=== PATIENT | male | born 1995 | race Caucasian/White ===

== ENCOUNTER 2016-09-07 17:07 | Inpatient (IN) | payer OTHER ==
[~2016-09-07] VITALS: Ht 177.8 cm; Wt 86.6 kg
[2016-09-08] MEDS ORDERED: MOM 30ML SUSPENSION UDC PO PRN (18:30)
[2016-09-08] MEDS ORDERED: ACETAMINOPHEN TAB 650MG DOSE (2X325MG) PO PRN (18:30)
[2016-09-08] MEDS ORDERED: MAALOX 30 ML SUSP *UDC PO PRN (18:30)
[2016-09-08] MEDS ORDERED: LORazepam 1 MG TAB PO PRN (18:30)
[2016-09-08] MEDS ORDERED: ATOM25CA PO (18:32)
[2016-09-08] MEDS ORDERED: LORA0.5T PO (18:32)
[2016-09-08] MEDS ORDERED: TRAZ50TA4 PO (18:32)
[2016-09-08] MEDS ORDERED: NICOTINE 21MG/24HR 1 EA TRANSDERMAL As Ordered ONE (20:08)
--- NOTE | 2016-09-08 21:50 | EDDOCDS ---
Physician Documentation [facility] Name: Wayne Luna Age: 21 yrs Sex: Male : 1995 Arrival Date: 09/07/2016 Time: 17:07 Bed OBSERVATION Private MD: Disposition: 09/08/16 18:02 Hospitalization ordered by Marty Bravo for Inpatient Admission. Preliminary diagnosis is Major depressive disorder, recurrent. - Bed requested for M PSY. - Status is Inpatient Admission. kb5 - Condition is Stable. Historical: - Allergies: no known allergies; - Home Meds: 1. clonazepam 0.5 mg Oral tab 1 tab daily 2. lorazepam 0.5 mg Oral tab 1 tab daily 3. trazodone 50 mg Oral tab 0.5 tab 1-2/day - PMHx: Anxiety; ADHD; - PSHx: none; - Social history: Smoking status: Patient uses tobacco products, heavy tobacco smoker. Patient uses alcohol weekly. No barriers to communication noted, The patient speaks fluent Turkish. - Family history: Not pertinent. - : The pt / caregiver states he / she is not on anticoagulants. Home medication list is obtained from the patient. - Exposure Risk Screening:: None identified. Vital Signs: 09/07 17:13 BP 129 / 78 RA Sitting (auto/reg); Pulse 76; Resp 18; Temp 98.3(O); Pulse Ox 98% on jrd R/A; Weight 83.91 kg / 184.99 lbs (R); Height 5 ft. 10 in. (177.80 cm); Pain 0/10; 22:24 BP 139 / 64; Pulse 79; Resp 18; Temp 97.9(TE); Pulse Ox 98% ; Pain 0/10; mas 09/08 05:01 BP 134 / 63; Pulse 65; Resp 16; Temp 97.2(TE); Pulse Ox 97% on R/A; Pain 0/10; slm 12:00 BP 136 / 68; Pulse 64; Resp 18; Temp 98(T); Pulse Ox 99% on R/A; mk4 21:31 BP 140 / 76; Pulse 76; Resp 18; Temp 98.1; Pulse Ox 96% on R/A; Pain 0/10; slm 09/07 17:13 Body Mass Index 26.54 (83.91 kg, 177.80 cm) jrd MDM: 09/07 17:28 Consult PFS/PSA/Hot Dimpling Machine Operator ordered. br1 17:28 Consult PFS/PSA/Hot Dimpling Machine Operator: Patient's case requires discussion with on-call br1 Psychiatrist ordered. 17:28 PSA/PFS to call Nursing E Tailer, to enter patient data on [place] Safe Act if patient br1 involuntarily admitted or transferred for SI or HI ordered. 17:28 Confirm accurate psychiatric medication list and times of last dosage ordered. br1 17:28 Detain Pt Until Medically/PFS Cleared ordered. br1 17:36 Consult PFS/PSA/Socail Worker: Cleared medically for eval ordered. br1 17:43 REGULAR DIET PLASTIC DOVE+DIET ordered. EDMS 18:09 [facility] Payment Agreement was scanned into [employer] and attached to record. gjb 18:09 Financial registration complete. gjb 21:16 Consult PFS/PSA/Hot Dimpling Machine Operator complete. slm 21:16 PSA/PFS to call Nursing E Tailer, to enter patient data on [place] Safe [place] if patient slm involuntarily admitted or transferred for SI or HI complete. 21:47 Consult PFS/PSA/Socail Worker: Cleared medically for eval complete. ml4 21:47 Consult PFS/PSA/Hot Dimpling Machine Operator: Patient's case requires discussion with on-call ml4 Psychiatrist complete. 09/08 04:24 REGULAR DIET PLASTIC DOVE+DIET ordered. EDMS 11:08 REGULAR DIET PLASTIC DOVE+DIET ordered. EDMS 17:17 REGULAR DIET PLASTIC DOVE+DIET ordered. EDMS 17:41 Admit to [facility]: ordered. EDMS 18:26 REGULAR DIET ordered. EDMS 19:32 [facility] Legal paperwork was scanned into [employer] and attached to record. ml4 20:03 Nicotine Patch 21 mg/24 hr 1 applic Transdermal once ordered. sls1 Administered Medications: 20:14 Drug: Nicotine 1 applic [nicotine 21 mg/24 hr daily transdermal patch (1 patches)] sl Route: Transdermal; Site: left upper arm; Signatures: Dispatcher [employer] EDMS Jessee Browning, Security Aide SecurpjEvlein Bacon, PSA PSA ml4 Db Vasquez, RURAL CARRIER ASSOCIATE RURAL CARRIER ASSOCIATE kb5 Marlon Clements MD MD br1 Leigh Cortez, RN RN sls1 Tayler Morales,BUSINESS RULES DEVELOPER BUSINESS RULES DEVELOPER slm Wm LittleRN RN mb9 Kaylie Teresa,RN RN kc3 Lenora Morfin The chart was reviewed and I authenticate all verbal orders and agree with the evaluation and treatment provided.Attachments: 09/07 18:09 [facility] Payment Agreement katie MTDD
--- NOTE | 2016-09-08 21:50 | EDDOCDS ---
Nurse's Notes [facility] Name: Wayne Luna Age: 21 yrs Sex: Male : 1995 Arrival Date: 09/07/2016 Time: 17:07 Bed OBSERVATION Private MD: Diagnosis: Major depressive disorder, recurrent Presentation: 09/07 17:13 Presenting complaint: Patient states: "I'm here because someone called an ambulance". mb9 When questioned further pt states, "I took a bunch of pills because I was in a bad way. I'm going through a divorce and I have a baby on the way.". pt reports this as a suicide attempt and states, "I just didn't want ot wake up. I know it was a stupid thing to do now". pt was transferred to [facility] from [facility]. pt reports that he took 2 of his clonazepam and the rest of his lorazepam and trazodone. Mental Health Triage Level: Level 2: The patient displays active suicidal ideations. Adult Sepsis Screening: The patient does not have new or worsening altered mentation. Patient's respiratory rate is less than 22. Systolic blood pressure is greater than 100. Patient has a qSOFA score of 0- Negative Sepsis Screen. Suicide/Homicide risk assessment- The patient admits to and/or has been reported to be having suicidal ideations. 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 Transition of care: patient was received from [facility]. 17:13 Acuity: KEIRA Level 3 mb9 17:13 Method Of Arrival: Ambulance mb9 Triage Assessment: 17:19 General: Appears in no apparent distress, Behavior is appropriate for age, cooperative. mb9 Pain: Denies pain. Pt Declines HIV testing. The patient is triaged at the bedside. See Assessment in Nurses Notes section of ED record. Respiratory: Airway is patent Respiratory effort is even, unlabored. Historical: - Allergies: no known allergies; - Home Meds: 1. clonazepam 0.5 mg Oral tab 1 tab daily 2. lorazepam 0.5 mg Oral tab 1 tab daily 3. trazodone 50 mg Oral tab 0.5 tab 1-2/day - PMHx: Anxiety; ADHD; - PSHx: none; - Social history: Smoking status: Patient uses tobacco products, heavy tobacco smoker. Patient uses alcohol weekly. No barriers to communication noted, The patient speaks fluent Portuguese. - Family history: Not pertinent. - : The pt / caregiver states he / she is not on anticoagulants. Home medication list is obtained from the patient. - Exposure Risk Screening:: None identified. Screenin:20 Screening information is obtained from the patient. Fall risk: No risks identified. slm Assistance ADL's: requires no assistance with activities of daily living. Nutritional screening: No deficits noted. Advance Directives: Currently, there is no health care proxy. There is no active DNR order. There is no living will. There is no Power of Janitorial Cleaner. Advance directive information has not previously been placed in an [facility] medical record. Further advance directive information is declined. 09/08 19:24 Abuse/DV Screen: The patient / caregiver reports he/she is: not in a situation that slm causes fear, pain or injury. home support is inadequate. Assessment: 09/07 17:46 Adult Sepsis Screening: The patient does not have new or worsening altered mentation. dsf Patient's respiratory rate is less than 22. Systolic blood pressure is greater than 100. Patient has a qSOFA score of 0- Negative Sepsis Screen. General: Appears in no apparent distress, Behavior is appropriate for age. Neurological: Level of Consciousness is awake, alert. Cardiovascular: Capillary refill < 3 seconds. Respiratory: Airway is patent Respiratory effort is even, unlabored, Respiratory pattern is regular, symmetrical. Derm: Skin is pink, warm & dry. 18:32 General: Appears in no apparent distress, comfortable, Behavior is appropriate for age, kc3 cooperative, Pt resting on stretcher with no complaints at this time. Psych security in place. Respirations even and unlabored. Will continue to monitor. . 18:59 General: Appears in no apparent distress, comfortable, Behavior is appropriate for age, ka4 cooperative, quiet. General: patient supine on stretcher. voices no complaints at this time. sitter observing. . Respiratory: Airway is patent Respiratory effort is even, unlabored, Respiratory pattern is regular, symmetrical. 19:15 General: Appears in no apparent distress, comfortable, Behavior is appropriate for age, slm cooperative. General: resting on stretcher awaiting to speak to high school social studies teacher security observing . Neurological: Level of Consciousness is awake, alert, obeys commands. Respiratory: Airway is patent Respiratory effort is even, unlabored. Derm: Skin is pink, warm & dry. 20:22 General: Appears in no apparent distress, comfortable, Behavior is appropriate for age, slm cooperative, pleasant. General: resting on stretcher security observing . Pain: Denies pain. Respiratory: Airway is patent Respiratory effort is even, unlabored. 21:14 General: Appears in no apparent distress, comfortable, Behavior is cooperative. slm General: security observing . Respiratory: Airway is patent Respiratory effort is even, unlabored. Derm: Skin is pink, warm & dry. 22:15 General: Appears in no apparent distress, comfortable, Behavior is cooperative, quiet. slm General: resting on stretcher security observing . Respiratory: Airway is patent Respiratory effort is even, unlabored. Derm: Skin is pink, warm & dry. 23:03 General: Appears in no apparent distress, comfortable, Behavior is cooperative, quiet. slm General: resting on stretcher security observing safety maintained . Respiratory: Airway is patent Respiratory effort is even, unlabored. 09/08 00:27 General: Appears in no apparent distress, comfortable, to be sleeping. Behavior is slm quiet. General: security observing . Respiratory: Airway is patent Respiratory effort is even, unlabored. 01:37 General: Appears in no apparent distress, comfortable, to be sleeping. Behavior is slm quiet. General: security observing . Respiratory: Airway is patent Respiratory effort is even, unlabored. 02:18 General: Appears in no apparent distress, comfortable, to be sleeping. Behavior is slm cooperative, quiet. General: security observing. Respiratory: Airway is patent Respiratory effort is even, unlabored. Derm: Skin is pink, warm & dry. 02:56 General: Appears in no apparent distress, Pt asleep at rounds, no apparent distress, sls1 security observing will continue to assess.. Respiratory: Airway is patent Respiratory effort is even, unlabored, Respiratory pattern is regular, symmetrical. 03:45 General: Appears in no apparent distress, comfortable, to be sleeping. Behavior is slm cooperative. General: security observing . Respiratory: Airway is patent Respiratory effort is even, unlabored. Derm: Skin is pink, warm & dry. 04:31 General: Appears in no apparent distress, comfortable, to be sleeping. Behavior is slm quiet. General: security observing . Respiratory: Airway is patent Respiratory effort is even, unlabored. Derm: Skin is pink, warm & dry. 05:01 General: Appears in no apparent distress, comfortable, Behavior is appropriate for age, slm cooperative, pleasant. General: pt sitting on bed request food at this time box lunch provided . deniers needs security observing . Pain: Denies pain. Neurological: Level of Consciousness is awake, alert, obeys commands. Respiratory: No deficits noted. Derm: Skin is pink, warm & dry. 06:16 General: Appears in no apparent distress, comfortable, Behavior is cooperative. slm General: pt resting on stretcher security observing . Respiratory: Airway is patent Respiratory effort is even, unlabored. 07:10 General: Appears in no apparent distress, comfortable, Behavior is appropriate for age, slm cooperative, pleasant. General: pt eating breakfast provided denies needs security observing . Respiratory: Airway is patent Respiratory effort is even, unlabored. 08:44 General: Appears in no apparent distress, comfortable, Behavior is cooperative. mk4 10:22 General: Appears in no apparent distress, comfortable, Behavior is cooperative, mk4 watching dvd player denies any needs. 12:00 General: Appears in no apparent distress, lunch tray provided, denies any needs. mk4 13:15 General: Appears in no apparent distress, comfortable, Behavior is cooperative. mk4 Neurological: Level of Consciousness is awake, alert. 14:20 General: Appears in no apparent distress, comfortable, Behavior is cooperative. mk4 Respiratory: Airway is patent. 15:59 General: Appears in no apparent distress, comfortable, Behavior is cooperative. mk4 Neurological: Level of Consciousness is awake, alert. 17:14 General: Appears in no apparent distress, comfortable, Behavior is cooperative, in 4 visiting , . Respiratory: Airway is patent Respiratory effort is even, unlabored, Respiratory pattern is regular. Derm: Skin is intact, is healthy with good turgor. 18:32 General: Appears in no apparent distress, comfortable, Behavior is cooperative, in mk4 visiting. dinner tray given, pt taking a shower. 19:23 General: Appears in no apparent distress, comfortable, Behavior is appropriate for age, slm cooperative. General: resting on stretcher security observing . Pain: Denies pain. Neurological: Level of Consciousness is awake, alert, obeys commands. Respiratory: Airway is patent Respiratory effort is even, unlabored. Derm: Skin is pink, warm & dry. 20:14 General: Appears in no apparent distress, comfortable, Behavior is appropriate for age, slm cooperative. General: resting on stretcher watching a movie pt calm denies needs security observing . Pain: Denies pain. Respiratory: Airway is patent Respiratory effort is even, unlabored. 21:06 General: Appears in no apparent distress, comfortable, Behavior is appropriate for age, slm cooperative, pleasant. General: resting on stretcher awaiting admission security observing . Pain: Denies pain. Neurological: Level of Consciousness is awake, alert, obeys commands. Respiratory: Airway is patent Respiratory effort is even, unlabored. 21:47 General: Appears in no apparent distress, comfortable, Behavior is cooperative. slm Neurological: Level of Consciousness is awake, alert, obeys commands. Respiratory: No deficits noted. Mental Health Eval: 09/07 19:59 Mental health consult is initiated at 17:00. 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 [facility] Behavioral Health: The patient is not an established patient of [facility] Behavioral Health. Referral Information: Evaluation referral is generated by [facility], due to OD of his medications. The patient was referred for evaluation because Pt reports taking an OD of all his medications, after his Kaylene told him he was a piece of trash, for getting another person from [place] at the same time, Betsey. Pt reports he has had thoughts of suicide off and on since an early age, but has never responded or attempted before. Pt stated when he was 8 years old his best friend, next door neighbor, 14 YO hung himself, then when the pt was 14YO , the brother of his friend hung himself. Pt describes an impulsive behavior/response Monday 20:00 2016 at his apartment, he then called his father in [place] and said, "I'm sorry" told him what he had done, he then was told to call his 1st jed [place], which he did and he was rushed to [facility]. Pt reports poor sleep habits and can not turn off his mind from racing when he is trying to sleep. Pt states he is compliant with his medications he gets for anxiety, and depression and treatment from [facility] psyche md Vela and a therapist Captain Julian. Subjective: The patients chief complaint is Pt OD on all his medication, then called his father in [place] to tell him "I'm Sorry", pt is in a two year marriage where he is not sure if he is the father of the unborn child, and whether he is the father of the unborn baby, with a girl in [facility], not sleeping well, . Delusions are denied. Patient's mood is anxious, depressed, hopeless, Hallucinations are denied. Mental Health history: anxiety, depression, panic attacks, post-traumatic stress disorder, sleep disturbance, suicide ideation since his friend killed himself when he was 8 years old Mental Health Admissions: None. Current Outpatient Mental Health Services: Psychiatrist / Agency: Teleconference Dr. Vela and therapist Captain Julian at [facility]. Current living environment is The patient currently lives an apartment in [place] by himself, is residing with her parents. The patient is . Patient presents to Emergency Department with the following symptoms within the past 2 weeks: agitation, anger, anxiety, denial, depressed mood, excessive guilt, feelings of helplessness/hopelessness, marital problem, poor impulse control, posttraumatic stress related to experiences, Pt reports he hated always being on edge, and is still on edge back home again, one deployment to [place] . relational problem, sleep disturbance - insomnia, suicidal ideation with attempt/gesture by pills. Substance abuse: Patient uses weekends, sometimes has a stop button, per pt. Mental status exam: Patients appearance is appropriate, Patient's behavior is cooperative, Speech is normal. Affect is broad. Mood is angry. anxious. appropriate. depressed. fearful. Hallucinations are denied. Appetite is normal. Memory is fair. Energy level is tires easily. Content of thought is normal. Thought process is intact. Cognitive level is oriented to person, place, time and situation Patient's insight is poor. Judgement is absent. Rapport with interviewer is good. Suicidal Ideation present with a plan to kill self by pills. Homicidal ideation is not present. Disposition: Medically cleared for disposition by Marlon Clements MD Psychiatric Consult is performed by phone with Dr Marty Bravo The patient is to be transferred to will look for an appropriate bed locations, [facility] is full at this time and the weather /road conditions are bad for travel at this point. [facility] Admission Criteria: The patient has had a suicide attempt in the recent past. Pt was in an argument with his , she was calling him worthless trash, and he OD on all his medications Monday 20:00, then called his father saying "I'm sorry", he was then told to call his 1st Vivi, which he did and was sent to [facility]. The patient requires continuous observation and/or control to protect self, others or property. The patient's care requires a multi-modal treatment plan under close supervision and coordination due to the complexity and severity of the patient's symptoms. The patient requires administration and monitoring of psychoactive medications by skilled medical providers due to the side effects of the psychoactive medications or significant dosage adjustments. Legal Status: Patient's legal status will be [facility] admission: 37. CT Safe Act: [place] Safe Act is applicable to this patient. The patient poses a risk to self or other and the Nursing Hvac Lead has been notified. He/She will enter the patient's data. DSM-V Differential Diagnosis: Unspecified Depressive Disorder (F32.9). Insurance Pre-Certification: Not Required. 21:23 Pt states preferred pharmacy is: [facility]. 09/08 18:05 Legal Status: Patient's legal status will be Emergency admission: 39. Awaiting: ml4 transfer to [facility]. 20:04 Narrative: Pt is distressed due to extensive wait time while waiting for a bed on [facility]. ml4 Verbal support given with some effect. Vital Signs: 09/07 17:13 BP 129 / 78 RA Sitting (auto/reg); Pulse 76; Resp 18; Temp 98.3(O); Pulse Ox 98% on jrd R/A; Weight 83.91 kg (R); Height 5 ft. 10 in. (177.80 cm); Pain 0/10; 22:24 BP 139 / 64; Pulse 79; Resp 18; Temp 97.9(TE); Pulse Ox 98% ; Pain 0/10; mas 09/08 05:01 BP 134 / 63; Pulse 65; Resp 16; Temp 97.2(TE); Pulse Ox 97% on R/A; Pain 0/10; slm 12:00 BP 136 / 68; Pulse 64; Resp 18; Temp 98(T); Pulse Ox 99% on R/A; mk4 21:31 BP 140 / 76; Pulse 76; Resp 18; Temp 98.1; Pulse Ox 96% on R/A; Pain 0/10; slm 09/07 17:13 Body Mass Index 26.54 (83.91 kg, 177.80 cm) jrd Vitals: 09/07 17:19 Log In Time N/A - ambulance arrival. mb9 ED Course: 17:13 Patient visited by Luke Ram PCA. jrd 17:13 Patient moved to Waiting jrd 17:13 Patient moved to I1 / M1 jrd 17:18 Triage Initiated mb9 17:19 Marlon Clements MD is Attending Physician. br1 17:27 Patient visited by Marlon Clements MD. br1 17:46 Patient visited by Leticia Ibanez RN. dsf 18:09 [facility] Payment Agreement was scanned into [email or web address] and attached to record. gjb 18:17 Patient name changed from Wayne\\S\\\\S\\Dye\\S\\ to Wayne\\S\\ \\S\\Dye. EDMS 18:32 The patient / caregiver is instructed regarding the plan of care and ED course. kc3 19:00 Patient visited by Rosa Vasquez LPN. ka4 19:10 Patient moved to [facility] mas 19:15 Tayler Morales LPN is Primary Nurse. slm 19:15 Patient visited by Alvin Munguia. mas 19:16 Patient visited by Tayler Morales LPN. slm 19:31 Patient visited by Alvin Munguia. mas 19:45 Patient visited by Alvin Munguia. mas 20:00 Patient visited by Alvin Munguia. mas 20:00 Patient moved to OBSERVATION br1 20:15 Patient visited by Alvin Munguia. mas 20:19 No IV's were initiated during this patient's visit. No procedures done that require slm assistance. 20:22 Patient visited by Tayler Morales LPN. slm 20:30 Patient visited by Alvin Munguia. mas 20:45 Patient visited by Alvin Munguia. mas 21:00 Patient visited by Alvin Munguia. mas 21:15 Patient visited by Alvin Munguia. mas 21:31 Patient visited by Alvin Munguia. mas 21:48 Patient visited by Alvin Munguia. mas 22:00 Patient visited by Alvin Munguia. mas 22:15 Patient visited by Alvin Munguia. mas 22:31 Patient visited by Alvin Munguia. mas 22:43 Patient visited by Tayler Morales LPN. slm 22:45 Patient visited by Alvin Munguia. mas 23:01 Patient visited by Alvin Munguia. mas 23:03 Patient visited by Tayler Morales LPN. slm 23:07 Attending Physician role handed off by Marlon Clements MD cs11 23:07 Law Frank DO is Attending Physician. cs11 23:15 Patient visited by Alvin Munguia. mas 23:30 Patient visited by Alvin Munguia. mas 01 00:05 Patient visited by Alvin Munguia. mas 00:26 Patient visited by Alvin Munguia. mas 00:31 Patient visited by Alvin Munguia. mas 00:45 Patient visited by Alvin Munguia. mas 01:01 Patient visited by Alvin Munguia. mas 01:16 Patient visited by Alvin Munguia. mas 01:30 Patient visited by Alvin Munguia. mas 01:45 Patient visited by Alvin Munguia. mas 02:00 Patient visited by Alvin Munguia. mas 02:15 Patient visited by Alvin Munguia. mas 02:18 Patient visited by Tayler Morales LPN. slm 02:30 Patient visited by Alvin Munguia. mas 02:45 Patient visited by Alvin Munguia. mas 02:57 Patient visited by Leigh Cortez RN. sls1 03:00 Patient visited by Alvin Munguia. mas 03:15 Patient visited by Alvin Munguia. mas 04:04 Patient visited by Alvin Munguia. mas 04:15 Patient visited by Tayler Morales LPN. slm 04:26 Patient visited by Leesa Byrd RN. cf2 04:44 Patient visited by lAvin Munguia. mas 05:00 Patient visited by Alvin Munguia. mas 05:02 Patient visited by Tayler Morales LPN. slm 05:15 Patient visited by Alvin Munguia. mas 05:39 Patient visited by Alvin Munguia. mas 05:45 Patient visited by Alvin Munguia. mas 06:00 Patient visited by Alvin Munguia. mas 06:15 Patient visited by Alvin Munguia. mas 06:17 Patient visited by Tayler Morales LPN. slm 06:30 Patient visited by Alvin Munguia. mas 06:45 Patient visited by Alvin Munguia. mas 07:05 Patient visited by Alvin Munguia. mas 07:09 Primary Nurse role handed off by Tayler Morales LPN mcp 07:09 Tayler Morales LPN is Primary Nurse. slm 07:22 Patient visited by Jessee Browning Security Aide. pjf 07:36 Patient visited by Jessee Browning Security Aidariel. pjf 07:44 Patient visited by Jessee Browning Security Aide. pjf 08:06 Patient visited by Jessee Browning Security Aide. pjf 08:29 Patient visited by Jessee Browning Security Aide. pjf 08:41 Patient visited by Jessee Browning Security Aide. pjf 09:00 Psych Safety Check: Location: Psych Room. Visual Assessment: Cooperative. pjf 09:00 Psych Safety Check: Location: Psych Room. Visual Assessment: Cooperative. pjf 09:39 Patient visited by Jessee Browning Security Aide. pjf 10:01 Patient visited by Jessee Browning Security Aide. pjf 10:35 Patient visited by Jessee Browning Security Aide. pjf 10:54 Patient visited by Jessee Browning Security Aide. pjf 11:05 Patient visited by Jessee Browning Security Aide. pjf 11:19 Patient visited by Jessee Browning Security Aide. pjf 11:41 Patient visited by Jessee Browning Security Aide. pjf 11:48 Patient visited by Jessee Browning Security Aide. pjf 12:07 Patient visited by Jessee Browning, Security Aide. pjf 12:18 Patient visited by Jessee Browning, Security Aide. pjf 12:34 Patient visited by Kiet Rosales. rn1 12:45 Patient visited by Kiet Rosales. rn1 12:59 Patient visited by Kiet Rosales. rn1 13:36 Patient visited by Jessee Browning, Security Aide. pjf 13:50 Patient visited by Jessee Browning Security Aide. pjf 14:00 Psych Safety Check: Location: Psych Room. Visual Assessment: Cooperative. pjf 14:19 Patient visited by Jessee Browning, Security Aide. pjf 14:37 Patient visited by Jessee Browning, Security Aide. pjf 14:45 Psych Safety Check: Location: Psych Room. Visual Assessment: Cooperative. pjf 15:00 Psych Safety Check: Location: Psych Room. Visual Assessment: Cooperative. pjf 15:40 Patient visited by Yolanda Garcia RN. mk4 15:56 Patient visited by Jessee Browning Security Aide. pjf 16:27 Patient visited by Jessee Browning, Security Aide. pjf 17:16 Patient visited by Jessee Browning, Security Aide. pjf 17:28 Patient visited by Jessee Browning, Security Aide. pjf 17:42 Patient visited by Jessee Browning, Security Aide. pjf 18:01 Marty Bravo is Hospitalizing Provider. pjf 18:14 Patient visited by Yolanda Garcia RN. mk4 18:21 Patient visited by Jessee Browning Security Aide. pjf 18:22 Patient visited by Jessee Browning, Security Aide. pjf 18:26 Patient visited by Jessee Browning, Security Aide. pjf 18:44 Patient visited by Jessee Browning, Security Aide. pjf 18:55 Patient visited by Jessee Browning, Security Aide. pjf 19:00 Psych Safety Check: Location: Psych Room. Visual Assessment: Cooperative. kb5 19:13 Patient visited by bD Vasquez PCA. kb5 19:15 Psych Safety Check: Location: Psych Room. Visual Assessment: Cooperative. kb5 19:30 Psych Safety Check: Location: Psych Room. Visual Assessment: Cooperative. kb5 19:32 E Legal paperwork was scanned into [email or web address] and attached to record. ml4 19:45 Psych Safety Check: Location: Psych Room. Visual Assessment: Cooperative, Restless. kb5 20:00 Psych Safety Check: Location: Psych Room. Visual Assessment: Cooperative. kb5 20:04 Patient visited by Db Vasquez PCA. kb5 20:15 Patient visited by Db Vasquez PCA. kb5 20:15 Psych Safety Check: Location: Psych Room. Visual Assessment: Cooperative. kb5 20:30 Psych Safety Check: Location: Psych Room. Visual Assessment: Cooperative. kb5 20:31 Patient visited by Db Vasquez PCA. kb5 20:45 Patient visited by Db Vasquez PCA. kb5 20:45 Psych Safety Check: Location: Psych Room. Visual Assessment: Cooperative. kb5 21:00 Psych Safety Check: Location: Psych Room. Visual Assessment: Cooperative. kb5 21:07 Patient visited by Tayler Morales LPN. [facility] 21:15 Psych Safety Check: Location: Psych Room. Visual Assessment: Cooperative. kb5 21:18 Patient visited by Db Vasquez PCA. kb5 21:32 Patient visited by Db Vasquez PCA. kb5 21:45 Patient visited by Db Vasquez PCA. kb5 Administered Medications: 20:14 Drug: Nicotine 1 applic [nicotine 21 mg/24 hr daily transdermal patch (1 patches)] sl Route: Transdermal; Site: left upper arm; Attachments: 09/08 19:32 E Legal paperwork ml4 Order Results: There are currently no results for this order. Outcome: 09/07 20:20 No special radiology studies were completed. Property removed, inventory done, secured slm in belongings bag- placed in locked locker. 09/08 04:54 Discharge Assessment: patient administered narcotics - no. slm 18:02 Decision to Hospitalize by Provider. pjf 21:48 The following High Risk Discharge criteria are identified: None. Admitted to [facility] accompanied by tech, via wheelchair, with chart. Condition: good. 21:50 Patient left the ED. kb5 Signatures: Dispatcher [employer] EDMS Alma Obregon, RN RN mcp Tyson, Paddy, PSA PSA cs Nallely, Jessee, Security Aide Secporfiriopf Evelin Mims, PSA PSA ml4 Db Vasquez, MIXER MACHINE FEEDER MIXER MACHINE FEEDER kb5 Marlon Clements MD MD br1 Alvin Munguia Desiree,RN RN dsf Leigh Cortez, RN RN sls1 Law Frank, DO DO cs11 Tayler Morales,SENIOR LEAD PROJECT MANAGER SENIOR LEAD PROJECT MANAGER slm Yolanda Garcia, RN RN mk4 PedroRosa,SENIOR LEAD PROJECT MANAGER SENIOR LEAD PROJECT MANAGER ka4 Leanna, Luke, MIXER MACHINE FEEDER MIXER MACHINE FEEDER jrd Wm Little,RN RN mb9 Kiet Rosales rn1 Kaylie Teresa,RN RN ame3 Lenora Morfin Christina,RN RN cf2 Corrections: (The following items were deleted from the chart) 09/07 17:26 17:13 Presenting complaint: Patient states: "I'm here because someone called an 9 ambulance". When questioned further pt states, "I took a bunch of pills because I was in a bad way. I'm going through a divorce and I have a baby on the way.". pt reports this as a suicide attempt and states, "I just didn't want ot wake up. I know it was a stupid thing to do now". pt was transferred to [facility] from [facility]. mb9 09/08 19:11 18:32 General: Appears in no apparent distress, comfortable, Behavior is cooperative, mk4 in visiting. dinner tray given. mk4 MTDD
[2016-09-08 22:30] VITALS: BP 159/81
[2016-09-09 06:25] VITALS: BP 118/67
[2016-09-09] MEDS: NICOTINE 21MG/24HR 1 EA TRANSDERMAL TD SCH (09:41)
--- NOTE | 2016-09-09 10:01 | HPEPDOC ---
Medical History and Physical Date of Admission Sep 08, 2016 at 21:57 History and Physical PCP: [facility] ATTENDING: Dr. Edin Cortes HPI: 21yoM admitted to [facility] for Anxiety/Depression NOS, being medically examined today. No acute medical complaints today. Denies any fevers, chills, weakness, fatigue, SNYDER, CP, SOB, cough, palpitations, abdominal pain, N/V/D or changes in bowel or bladder habits. 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 ROS: As noted in HPI, otherwise 11pt ROS of systems reviewed and unremarkable PE: GEN: 21 yo F, appears stated age. Well-nourished, well developed. No acute distress. Alert and oriented x 3. Pleasant, interactive. HEENT: Normocephalic, atraumatic. Pupils are equal, round, and reactive to light. Extraocular movements are intact. No nystagmus appreciated. Sclera are nonicteric. Conjunctiva without injection. Nose midline. Nasal turbinates without bogginess. EACs both patent BL. TMs both visualized and obregon with good cone of light, no bulging or erythema. No facial asymmetry. Moist mucous membranes. Dentition fair. Pharynx pink and moist, no cobblestoning. Neck supple , trachea midline. No lymphadenopathy or thyromegaly appreciated. CHEST: Regular rate and rhythm, +S1, +S2 LUNGS: Clear to auscultation bilaterally. No wheezes, rales, or rhonchi. Breathing appears symmetric and easy. Patient is speaking in full sentences. No accessory muscle use. ABD: Round, soft, non-tender, non-distended. +Bowel sounds throughout. No rebound or guarding. No costovertebral angle tenderness. EXT: Pulses 2+ bilaterally dorsalis pedis and radial. No lower extremity edema appreciated. SKIN: [place], dry, warm. Capillary refill <2sec. No rashes. NEURO: Alert and oriented x 3. Cranial nerves III-XII are intact. No focal deficits appreciated. EKG: CAH: NSR 73 bpm. Labs CAH: WBC 5.7 Hgb 44..1 Hct 85.6 Plt 225 Na 144 K 3.4 Cl 102 Bun 6 SCr 0.6 AST 18 ALT 20 CPK 66 D Dimer < 0.27 Mag 2.2 Lipase 16 Troponin <0.01 TSH 1.12 INR 0.98 UA neg Toxicology remarkable for ETOH 0.12 A&P: 21yoM admitted to [facility] for Anxiety/Depression NOS 1. Psych. Plan per Psychiatry. EKG on file. 2. Nicotine dependence. Patch available. 3. Hypokalemia. Recheck BMP. 4. Follow up with PCP on discharge. [facility]. Vital Signs Vital Signs Label Value Date Time Patient Temperature 96.6 degrees F 09/09/16 0625 Temperature Source Tympanic 09/09/16 0625 Pulse 64 09/09/16 0625 Respiratory Rate 18 bpm 09/09/16 0625 Blood Pressure Assessment 118/67 (84) 09/09/16 0625 Home Medications Scheduled Atomoxetine Hydrochloride (Strattera) 25 Mg Cap 25 MG PO BID Scheduled PRN Lorazepam (Lorazepam) 0.5 Mg Tab 0.5 MG PO DAILY PRN PRN ANXIETY Trazodone HCl (Trazodone HCl) 50 Mg Tab 25 MG PO QHS PRN PRN SLEEP Allergies Coded Allergies: No Known Allergies (Unverified , 08/06/14) Jesi Crump Sep 09, 2016 10:01
[2016-09-09 12:42] LABS: ANION GAP 7 MEQ/L (8-16); BLOOD UREA NITROGEN 9 MG/DL (7-18); CALCIUM LEVEL 9.4 MG/DL (8.5-10.1); CARBON DIOXIDE LEVEL 30 MEQ/L (21-32); CHLORIDE LEVEL 103 MEQ/L (98-107); CREATININE FOR GFR 0.87 MG/DL (0.70-1.30); GLOMERULAR FILTRATION RATE > 60.0 (>60); GLUCOSE, FASTING 94 MG/DL (70-105); POTASSIUM SERUM 4.3 MEQ/L (3.5-5.1); SODIUM LEVEL 140 MEQ/L (136-145)
--- NOTE | 2016-09-09 18:19 | MHHPE ---
DATE OF ADMISSION: 09/09/2016 DATE OF SERVICE: 09/09/2016 CHIEF COMPLAINT: "I tried to commit suicide. 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 Reportedly he had been involved in arguments with his , Kayla, for awhile over issues related to marital infidelity involving both of them. He says that he impregnated another woman in [place] while his was engaging in extramarital affairs. He reports that he has for some time been dealing with the stress related to conflicts in his marriage, but things got heated up on the day leading to his [facility] Emergency Department visit. He swallowed an excessive number of his prescription pills, Klonopin, lorazepam, and trazodone, due to his telling him that he was a piece of trash for getting another woman . The patient says he immediately called his father, who lives in [place], and told him what he had done. Heeding to his father's advise, he called his superior officer, Sergeant London, and informed him of the event, leading to his being rushed to [facility]. PAST PSYCHIATRIC HISTORY: The patient denies past psychiatric hospitalization; however, he states that he has in past 8 months been going to [facility] for counseling in relation to stressful events, including being in the and marital conflicts. He was prescribed Klonopin, which was later switched to lorazepam for anxiety and trazodone for sleep. No severe depressive symptoms, such as hopelessness, helplessness, or weight changes reported. Of note, he reports a history of attention deficit hyperactivity disorder, for which he says he is prescribed Strattera; however, his reported symptoms do not seem to fit such a diagnosis. SUBSTANCE ABUSE: He smokes half pack of cigarettes per day and experiences marked craving when not smoking. Alcohol consumption is reported to be minimal, and he denies use of illicit substances. MEDICAL HISTORY: No pertinent medical condition or allergy reported. PERSONAL HISTORY: He was born in [place]. Describes normal childhood and adolescence. No reported physical or sexual abuse. He graduated high school. He has been since July 2014, and his is currently in her last trimester of . Both are , with the patient living alone in an apartment in [place], and his is residing with her parents. FAMILY HISTORY: He denies family history of mental illness. HOME MEDICATIONS: - clonazepam 0.5 mg daily - lorazepam 0.5 mg daily - trazodone 50 mg half tablet daily VITAL SIGNS: Blood pressure 118/67, pulse 64, respirations 18, temperature 96.6. MENTAL STATUS EXAMINATION: He is of average height and build. No abnormal physical features present. Grooming and hygiene are adequate, and he is dressed appropriately in [facility]. He is calm, cooperative, and relates appropriately. His speech is fluent with no articulation difficulties. Thought process is logical and well organized. No delusions are noted, and he denies hallucination. His mood is depressed and affect mood congruent. He denies active suicidal thoughts, plan, or intent as well as homicidal ideation, although admits to occasional thoughts of killing himself, mostly in context of aforementioned marital and work-related stressors. Cognitively, he is alert and oriented to person, time, and place. His insight is fair and judgment currently not impaired. Impulse control, however, is inadequate. DIAGNOSIS: Adjustment disorder with mixed anxiety and depressed mood. 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 Reported stressful events leading up to this include -related difficulty sand marital problems, He is from his , and both are contemplating divorce. His reported symptoms include anxiety and depressed mood; however, criteria for a major mood, anxiety, or psychotic disorder is currently not met. He will benefit , however, from inpatient hospitalization for further risk assessment in view of his recent suicidal behavior. PROBLEM LIST: 1. Adjustment difficulties. 2. Risk for suicide. PLAN: 1. Admission to inpatient unit 2. Safety precautions as per protocol. 3. Therapeutic programming, including individual, group, and activity therapy in supportive formats. 4. No psychotropic medications currently indicated; however, he will be assessed ongoing to determine necessity. ESTIMATED LENGTH OF STAY: 3-5 days. MTDD
[2016-09-09 18:30] VITALS: BP 151/70
[2016-09-09] MEDS: traZODone 50 MG TAB PO PRN (22:27)
[2016-09-10 06:50] VITALS: BP 109/61
[2016-09-10] MEDS: NICOTINE 21MG/24HR 1 EA TRANSDERMAL TD SCH (08:03)
[2016-09-10 13:15] VITALS: BP 109/61
[2016-09-10 18:00] VITALS: BP 125/67
--- NOTE | 2016-09-10 22:51 | EDDOCDS ---
Physician Documentation [facility] Name: Wayne Luna Age: 21 yrs Sex: Male : 1995 Arrival Date: 09/07/2016 Time: 17:07 Bed OBSERVATION Private MD: Disposition: 09/08/16 18:02 Hospitalization ordered by Marty Bravo for Inpatient Admission. Preliminary diagnosis is Major depressive disorder, recurrent. - Bed requested for M PSY. - Status is Inpatient Admission. kb5 - Condition is Stable. Historical: - Allergies: no known allergies; - Home Meds: 1. clonazepam 0.5 mg Oral tab 1 tab daily 2. lorazepam 0.5 mg Oral tab 1 tab daily 3. trazodone 50 mg Oral tab 0.5 tab 1-2/day - PMHx: Anxiety; ADHD; - PSHx: none; - Social history: Smoking status: Patient uses tobacco products, heavy tobacco smoker. Patient uses alcohol weekly. No barriers to communication noted, The patient speaks fluent Romanian. - Family history: Not pertinent. - : The pt / caregiver states he / she is not on anticoagulants. Home medication list is obtained from the patient. - Exposure Risk Screening:: None identified. Vital Signs: 09/07 17:13 BP 129 / 78 RA Sitting (auto/reg); Pulse 76; Resp 18; Temp 98.3(O); Pulse Ox 98% on jrd R/A; Weight 83.91 kg / 184.99 lbs (R); Height 5 ft. 10 in. (177.80 cm); Pain 0/10; 22:24 BP 139 / 64; Pulse 79; Resp 18; Temp 97.9(TE); Pulse Ox 98% ; Pain 0/10; mas 09/08 05:01 BP 134 / 63; Pulse 65; Resp 16; Temp 97.2(TE); Pulse Ox 97% on R/A; Pain 0/10; slm 12:00 BP 136 / 68; Pulse 64; Resp 18; Temp 98(T); Pulse Ox 99% on R/A; mk4 21:31 BP 140 / 76; Pulse 76; Resp 18; Temp 98.1; Pulse Ox 96% on R/A; Pain 0/10; slm 09/07 17:13 Body Mass Index 26.54 (83.91 kg, 177.80 cm) jrd MDM: 09/07 17:28 Consult PFS/PSA/Memory Care Program Resident ordered. br1 17:28 Consult PFS/PSA/Memory Care Program Resident: Patient's case requires discussion with on-call br1 Psychiatrist ordered. 17:28 PSA/PFS to call Nursing Skidway Worker, to enter patient data on [place] Safe [place] if patient br1 involuntarily admitted or transferred for SI or HI ordered. 17:28 Confirm accurate psychiatric medication list and times of last dosage ordered. br1 17:28 Detain Pt Until Medically/PFS Cleared ordered. br1 17:36 Consult PFS/PSA/Socail Worker: Cleared medically for eval ordered. br1 17:43 REGULAR DIET PLASTIC DOVE+DIET ordered. EDMS 18:09 [facility] Payment Agreement was scanned into [employer] and attached to record. gjb 18:09 Financial registration complete. gjb 21:16 Consult PFS/PSA/Memory Care Program Resident complete. slm 21:16 PSA/PFS to call Nursing Skidway Worker, to [place] if patient slm involuntarily admitted or transferred for SI or HI complete. 21:47 Consult PFS/PSA/Socail Worker: Cleared medically for eval complete. ml4 21:47 Consult PFS/PSA/Memory Care Program Resident: Patient's case requires discussion with on-call ml4 Psychiatrist complete. 09/08 04:24 REGULAR DIET PLASTIC DOVE+DIET ordered. EDMS 11:08 REGULAR DIET PLASTIC DOVE+DIET ordered. EDMS 17:17 REGULAR DIET PLASTIC DOVE+DIET ordered. EDMS 17:41 Admit to [facility]: ordered. EDMS 18:26 REGULAR DIET ordered. EDMS 19:32 [facility] Legal paperwork was scanned into [employer] and attached to record. ml4 20:03 Nicotine Patch 21 mg/24 hr 1 applic Transdermal once ordered. sls1 09/09 08:27 T-Sheet-- Draft Copy was scanned into [employer] and attached to record. gb Administered Medications: 09/08 20:14 Drug: Nicotine 1 applic [nicotine 21 mg/24 hr daily transdermal patch (1 patches)] slm Route: Transdermal; Site: left upper arm; Signatures: Dispatcher [employer] EDMS Teresa Webber, Reg Reg gb Nallely, Jessee, Security Aide SecurpEvelin Soler, PSA PSA ml4 Db Vasquez, FIELD PRODUCER FIELD PRODUCER kb5 Marlon Clements MD MD br1 Leigh Cortez RN RN sls1 Tayler Morales LPN LPN Wm Neumann,RN RN mb9 Kaylie Teresa,RN RN kc3 Lenora Morfin The chart was reviewed and I authenticate all verbal orders and agree with the evaluation and treatment provided.Attachments: 09/07 18:09 [facility] Payment Agreement gjb 09/09 08:27 T-Sheet-- Draft Copy gb Chart Complete MTDD
--- NOTE | 2016-09-10 22:51 | EDDOCDS ---
Physician Documentation [facility] Name: Wayne Luna Age: 21 yrs Sex: Male : 1995 Arrival Date: 09/07/2016 Time: 17:07 Bed OBSERVATION Private MD: Disposition: 09/08/16 18:02 Hospitalization ordered by Marty Bravo for Inpatient Admission. Preliminary diagnosis is Major depressive disorder, recurrent. - Bed requested for M PSY. - Status is Inpatient Admission. kb5 - Condition is Stable. Historical: - Allergies: no known allergies; - Home Meds: 1. clonazepam 0.5 mg Oral tab 1 tab daily 2. lorazepam 0.5 mg Oral tab 1 tab daily 3. trazodone 50 mg Oral tab 0.5 tab 1-2/day - PMHx: Anxiety; ADHD; - PSHx: none; - Social history: Smoking status: Patient uses tobacco products, heavy tobacco smoker. Patient uses alcohol weekly. No barriers to communication noted, The patient speaks fluent Slovak. - Family history: Not pertinent. - : The pt / caregiver states he / she is not on anticoagulants. Home medication list is obtained from the patient. - Exposure Risk Screening:: None identified. Vital Signs: 09/07 17:13 BP 129 / 78 RA Sitting (auto/reg); Pulse 76; Resp 18; Temp 98.3(O); Pulse Ox 98% on jrd R/A; Weight 83.91 kg / 184.99 lbs (R); Height 5 ft. 10 in. (177.80 cm); Pain 0/10; 22:24 BP 139 / 64; Pulse 79; Resp 18; Temp 97.9(TE); Pulse Ox 98% ; Pain 0/10; mas 09/08 05:01 BP 134 / 63; Pulse 65; Resp 16; Temp 97.2(TE); Pulse Ox 97% on R/A; Pain 0/10; slm 12:00 BP 136 / 68; Pulse 64; Resp 18; Temp 98(T); Pulse Ox 99% on R/A; mk4 21:31 BP 140 / 76; Pulse 76; Resp 18; Temp 98.1; Pulse Ox 96% on R/A; Pain 0/10; slm 09/07 17:13 Body Mass Index 26.54 (83.91 kg, 177.80 cm) jrd MDM: 09/07 17:28 Consult PFS/PSA/Scalp Treatment Specialist ordered. br1 17:28 Consult PFS/PSA/Scalp Treatment Specialist: Patient's case requires discussion with on-call br1 Psychiatrist ordered. 17:28 PSA/PFS to call Nursing Welfare Officer, to [place] if patient br1 involuntarily admitted or transferred for SI or HI ordered. 17:28 Confirm accurate psychiatric medication list and times of last dosage ordered. br1 17:28 Detain Pt Until Medically/PFS Cleared ordered. br1 17:36 Consult PFS/PSA/Socail Worker: Cleared medically for eval ordered. br1 17:43 REGULAR DIET PLASTIC DOVE+DIET ordered. EDMS 18:09 [facility] Payment Agreement was scanned into [employer] and attached to record. gjb 18:09 Financial registration complete. gjb 21:16 Consult PFS/PSA/Scalp Treatment Specialist complete. slm 21:16 PSA/PFS to call Nursing Welfare Officer, to [place] if patient slm involuntarily admitted or transferred for SI or HI complete. 21:47 Consult PFS/PSA/Socail Worker: Cleared medically for eval complete. ml4 21:47 Consult PFS/PSA/Scalp Treatment Specialist: Patient's case requires discussion with on-call ml4 Psychiatrist complete. 09/08 04:24 REGULAR DIET PLASTIC DOVE+DIET ordered. EDMS 11:08 REGULAR DIET PLASTIC DOVE+DIET ordered. EDMS 17:17 REGULAR DIET PLASTIC DOVE+DIET ordered. EDMS 17:41 [facility] to [facility]: ordered. EDMS 18:26 REGULAR DIET ordered. EDMS 19:32 [facility] Legal paperwork was scanned into [employer] and attached to record. ml4 20:03 Nicotine Patch 21 mg/24 hr 1 applic Transdermal once ordered. sls1 09/09 08:27 T-Sheet-- Draft Copy was scanned into [employer] and attached to record. gb Administered Medications: 09/08 20:14 Drug: Nicotine 1 applic [nicotine 21 mg/24 hr daily transdermal patch (1 patches)] slm Route: Transdermal; Site: left upper arm; Signatures: Dispatcher [employer] EDMS Teresa Webber, Reg Reg gb Nallely, Jessee, Security Aide SecurpEvelin Soler, PSA PSA ml4 Db Vasquez, HVAC/R SERVICE TECHNICIAN HVAC/R SERVICE TECHNICIAN kb5 Marlon Clements MD MD br1 Leigh Cortez RN RN sls1 Tayler Morales LPN LPN Wm Neumann,RN RN mb9 Kaylie Teresa,RN RN kc3 Lenora Morfin The chart was reviewed and I authenticate all verbal orders and agree with the evaluation and treatment provided.Attachments: 09/07 18:09 [facility] Payment Agreement gjb 09/09 08:27 T-Sheet-- Draft Copy gb Chart Complete MTDD
--- NOTE | 2016-09-10 22:51 | EDDOCDS ---
Nurse's Notes [facility] Name: Wayne Luna Age: 21 yrs Sex: Male : 1995 Arrival Date: 09/07/2016 Time: 17:07 Bed OBSERVATION Private MD: Diagnosis: Major depressive disorder, recurrent Presentation: 09/07 17:13 Presenting complaint: Patient states: "I'm here because someone called an ambulance". mb9 When questioned further pt states, "I took a bunch of pills because I was in a bad way. I'm going through a divorce and I have a baby on the way.". pt reports this as a suicide attempt and states, "I just didn't want ot wake up. I know it was a stupid thing to do now". pt was transferred to [facility] from [facility]. pt reports that he took 2 of his clonazepam and the rest of his lorazepam and trazodone. Mental Health Triage Level: Level 2: The patient displays active suicidal ideations. Adult Sepsis Screening: The patient does not have new or worsening altered mentation. Patient's respiratory rate is less than 22. Systolic blood pressure is greater than 100. Patient has a qSOFA score of 0- Negative Sepsis Screen. Suicide/Homicide risk assessment- The patient admits to and/or has been reported to be having suicidal ideations. 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 Transition of care: patient was received from [facility]. 17:13 Acuity: KEIRA Level 3 mb9 17:13 Method Of Arrival: Ambulance mb9 Triage Assessment: 17:19 General: Appears in no apparent distress, Behavior is appropriate for age, cooperative. mb9 Pain: Denies pain. Pt Declines HIV testing. The patient is triaged at the bedside. See Assessment in Nurses Notes section of ED record. Respiratory: Airway is patent Respiratory effort is even, unlabored. Historical: - Allergies: no known allergies; - Home Meds: 1. clonazepam 0.5 mg Oral tab 1 tab daily 2. lorazepam 0.5 mg Oral tab 1 tab daily 3. trazodone 50 mg Oral tab 0.5 tab 1-2/day - PMHx: Anxiety; ADHD; - PSHx: none; - Social history: Smoking status: Patient uses tobacco products, heavy tobacco smoker. Patient uses alcohol weekly. No barriers to communication noted, The patient speaks fluent French. - Family history: Not pertinent. - : The pt / caregiver states he / she is not on anticoagulants. Home medication list is obtained from the patient. - Exposure Risk Screening:: None identified. Screenin:20 Screening information is obtained from the patient. Fall risk: No risks identified. slm Assistance ADL's: requires no assistance with activities of daily living. Nutritional screening: No deficits noted. Advance Directives: Currently, there is no health care proxy. There is no active DNR order. There is no living will. 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 Advance directive information has not previously been placed in an [facility] medical record. Further advance directive information is declined. 09/08 19:24 Abuse/DV Screen: The patient / caregiver reports he/she is: not in a situation that slm causes fear, pain or injury. home support is inadequate. Assessment: 09/07 17:46 Adult Sepsis Screening: The patient does not have new or worsening altered mentation. dsf Patient's respiratory rate is less than 22. Systolic blood pressure is greater than 100. Patient has a qSOFA score of 0- Negative Sepsis Screen. General: Appears in no apparent distress, Behavior is appropriate for age. Neurological: Level of Consciousness is awake, alert. Cardiovascular: Capillary refill < 3 seconds. Respiratory: Airway is patent Respiratory effort is even, unlabored, Respiratory pattern is regular, symmetrical. Derm: Skin is pink, warm & dry. 18:32 General: Appears in no apparent distress, comfortable, Behavior is appropriate for age, kc3 cooperative, Pt resting on stretcher with no complaints at this time. Psych security in place. Respirations even and unlabored. Will continue to monitor. . 18:59 General: Appears in no apparent distress, comfortable, Behavior is appropriate for age, ka4 cooperative, quiet. General: patient supine on stretcher. voices no complaints at this time. sitter observing. . Respiratory: Airway is patent Respiratory effort is even, unlabored, Respiratory pattern is regular, symmetrical. 19:15 General: Appears in no apparent distress, comfortable, Behavior is appropriate for age, slm cooperative. General: resting on stretcher awaiting to speak to social science instructor security observing . Neurological: Level of Consciousness is awake, alert, obeys commands. Respiratory: Airway is patent Respiratory effort is even, unlabored. Derm: Skin is pink, warm & dry. 20:22 General: Appears in no apparent distress, comfortable, Behavior is appropriate for age, slm cooperative, pleasant. General: resting on stretcher security observing . Pain: Denies pain. Respiratory: Airway is patent Respiratory effort is even, unlabored. 21:14 General: Appears in no apparent distress, comfortable, Behavior is cooperative. slm General: security observing . Respiratory: Airway is patent Respiratory effort is even, unlabored. Derm: Skin is pink, warm & dry. 22:15 General: Appears in no apparent distress, comfortable, Behavior is cooperative, quiet. slm General: resting on stretcher security observing . Respiratory: Airway is patent Respiratory effort is even, unlabored. Derm: Skin is pink, warm & dry. 23:03 General: Appears in no apparent distress, comfortable, Behavior is cooperative, quiet. slm General: resting on stretcher security observing safety maintained . Respiratory: Airway is patent Respiratory effort is even, unlabored. 09/08 00:27 General: Appears in no apparent distress, comfortable, to be sleeping. Behavior is slm quiet. General: security observing . Respiratory: Airway is patent Respiratory effort is even, unlabored. 01:37 General: Appears in no apparent distress, comfortable, to be sleeping. Behavior is slm quiet. General: security observing . Respiratory: Airway is patent Respiratory effort is even, unlabored. 02:18 General: Appears in no apparent distress, comfortable, to be sleeping. Behavior is slm cooperative, quiet. General: security observing. Respiratory: Airway is patent Respiratory effort is even, unlabored. Derm: Skin is pink, warm & dry. 02:56 General: Appears in no apparent distress, Pt asleep at rounds, no apparent distress, sls1 security observing will continue to assess.. Respiratory: Airway is patent Respiratory effort is even, unlabored, Respiratory pattern is regular, symmetrical. 03:45 General: Appears in no apparent distress, comfortable, to be sleeping. Behavior is slm cooperative. General: security observing . Respiratory: Airway is patent Respiratory effort is even, unlabored. Derm: Skin is pink, warm & dry. 04:31 General: Appears in no apparent distress, comfortable, to be sleeping. Behavior is slm quiet. General: security observing . Respiratory: Airway is patent Respiratory effort is even, unlabored. Derm: Skin is pink, warm & dry. 05:01 General: Appears in no apparent distress, comfortable, Behavior is appropriate for age, slm cooperative, pleasant. General: pt sitting on bed request food at this time box lunch provided . deniers needs security observing . Pain: Denies pain. Neurological: Level of Consciousness is awake, alert, obeys commands. Respiratory: No deficits noted. Derm: Skin is pink, warm & dry. 06:16 General: Appears in no apparent distress, comfortable, Behavior is cooperative. slm General: pt resting on stretcher security observing . Respiratory: Airway is patent Respiratory effort is even, unlabored. 07:10 General: Appears in no apparent distress, comfortable, Behavior is appropriate for age, slm cooperative, pleasant. General: pt eating breakfast provided denies needs security observing . Respiratory: Airway is patent Respiratory effort is even, unlabored. 08:44 General: Appears in no apparent distress, comfortable, Behavior is cooperative. mk4 10:22 General: Appears in no apparent distress, comfortable, Behavior is cooperative, mk4 watching dvd player denies any needs. 12:00 General: Appears in no apparent distress, lunch tray provided, denies any needs. mk4 13:15 General: Appears in no apparent distress, comfortable, Behavior is cooperative. mk4 Neurological: Level of Consciousness is awake, alert. 14:20 General: Appears in no apparent distress, comfortable, Behavior is cooperative. mk4 Respiratory: Airway is patent. 15:59 General: Appears in no apparent distress, comfortable, Behavior is cooperative. mk4 Neurological: Level of Consciousness is awake, alert. 17:14 General: Appears in no apparent distress, comfortable, Behavior is cooperative, in 4 visiting , . Respiratory: Airway is patent Respiratory effort is even, unlabored, Respiratory pattern is regular. Derm: Skin is intact, is healthy with good turgor. 18:32 General: Appears in no apparent distress, comfortable, Behavior is cooperative, in mk4 visiting. dinner tray given, pt taking a shower. 19:23 General: Appears in no apparent distress, comfortable, Behavior is appropriate for age, slm cooperative. General: resting on stretcher security observing . Pain: Denies pain. Neurological: Level of Consciousness is awake, alert, obeys commands. Respiratory: Airway is patent Respiratory effort is even, unlabored. Derm: Skin is pink, warm & dry. 20:14 General: Appears in no apparent distress, comfortable, Behavior is appropriate for age, slm cooperative. General: resting on stretcher watching a movie pt calm denies needs security observing . Pain: Denies pain. Respiratory: Airway is patent Respiratory effort is even, unlabored. 21:06 General: Appears in no apparent distress, comfortable, Behavior is appropriate for age, slm cooperative, pleasant. General: resting on stretcher awaiting admission security observing . Pain: Denies pain. Neurological: Level of Consciousness is awake, alert, obeys commands. Respiratory: Airway is patent Respiratory effort is even, unlabored. 21:47 General: Appears in no apparent distress, comfortable, Behavior is cooperative. slm Neurological: Level of Consciousness is awake, alert, obeys commands. Respiratory: No deficits noted. Mental Health Eval: 09/07 19:59 Mental health consult is initiated at 17:00. 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 [facility] Behavioral Health: The patient is not an established patient of [facility] Behavioral Health. Referral Information: Evaluation referral is generated by [facility], due to OD of his medications. The patient was referred for evaluation because Pt reports taking an OD of all his medications, after his Kaylene told him he was a piece of trash, for getting another person from [place] at the same time, Betsey. Pt reports he has had thoughts of suicide off and on since an early age, but has never responded or attempted before. Pt stated when he was 8 years old his best friend, next door neighbor, 14 YO hung himself, then when the pt was 14YO , the brother of his friend hung himself. Pt describes an impulsive behavior/response Monday 20:00 2016 at his apartment, he then called his father in [place] and said, "I'm sorry" told him what he had done, he then was told to call his 1st jed [place], which he did and he was rushed to [facility]. Pt reports poor sleep habits and can not turn off his mind from racing when he is trying to sleep. Pt states he is compliant with his medications he gets for anxiety, and depression and treatment from [facility] md Vela and a therapist Captain Julian. Subjective: The patients chief complaint is Pt OD on all his medication, then called his father in [place] to tell him "I'm Sorry", pt is in a two year marriage where he is not sure if he is the father of the unborn child, and whether he is the father of the unborn baby, with a girl in [facility], not sleeping well, . Delusions are denied. Patient's mood is anxious, depressed, hopeless, Hallucinations are denied. Mental Health history: anxiety, depression, panic attacks, post-traumatic stress disorder, sleep disturbance, suicide ideation since his friend killed himself when he was 8 years old Mental Health Admissions: None. Current Outpatient Mental Health Services: Psychiatrist / Agency: Teleconference Dr. Vela and therapist Captain Julian at [facility]. Current living environment is The patient currently lives an apartment in [place] by himself, is residing with her parents. The patient is . Patient presents to Emergency Department with the following symptoms within the past 2 weeks: agitation, anger, anxiety, denial, depressed mood, excessive guilt, feelings of helplessness/hopelessness, marital problem, poor impulse control, posttraumatic stress related to experiences, Pt reports he hated always being on edge, and is still on edge back home again, one deployment to [place] . relational problem, sleep disturbance - insomnia, suicidal ideation with attempt/gesture by pills. Substance abuse: Patient uses weekends, sometimes has a stop button, per pt. Mental status exam: Patients appearance is appropriate, Patient's behavior is cooperative, Speech is normal. Affect is broad. Mood is angry. anxious. appropriate. depressed. fearful. Hallucinations are denied. Appetite is normal. Memory is fair. Energy level is tires easily. Content of thought is normal. Thought process is intact. Cognitive level is oriented to person, place, time and situation Patient's insight is poor. Judgement is absent. Rapport with interviewer is good. Suicidal Ideation present with a plan to kill self by pills. Homicidal ideation is not present. Disposition: Medically cleared for disposition by Marlon Clements MD Psychiatric Consult is performed by phone with Dr Marty Bravo The patient is to be transferred to will look for an appropriate bed locations, [facility] is full at this time and the weather /road conditions are bad for travel at this point. [facility] Admission Criteria: The patient has had a suicide attempt in the recent past. Pt was in an argument with his , she was calling him worthless trash, and he OD on all his medications Monday 20:00, then called his father saying "I'm sorry", he was then told to call his 1st Vivi, which he did and was sent to [facility]. The patient requires continuous observation and/or control to protect self, others or property. The patient's care requires a multi-modal treatment plan under close supervision and coordination due to the complexity and severity of the patient's symptoms. The patient requires administration and monitoring of psychoactive medications by skilled medical providers due to the side effects of the psychoactive medications or significant dosage adjustments. Legal Status: Patient's legal status will be [facility] admission: 37. [place] Safe Act: [place] Safe Act is applicable to this patient. The patient poses a risk to self or other and the Nursing Stoneworker has been notified. He/She will enter the patient's data. DSM-V Differential Diagnosis: Unspecified Depressive Disorder (F32.9). Insurance Pre-Certification: Not Required. 21:23 Pt states preferred pharmacy is: [facility]. 09/08 18:05 Legal Status: Patient's legal status will be Emergency admission: 39. Awaiting: ml4 transfer to [facility]. 20:04 Narrative: Pt is distressed due to extensive wait time while waiting for a bed on [facility]. ml4 Verbal support given with some effect. Vital Signs: 09/07 17:13 BP 129 / 78 RA Sitting (auto/reg); Pulse 76; Resp 18; Temp 98.3(O); Pulse Ox 98% on jrd R/A; Weight 83.91 kg (R); Height 5 ft. 10 in. (177.80 cm); Pain 0/10; 22:24 BP 139 / 64; Pulse 79; Resp 18; Temp 97.9(TE); Pulse Ox 98% ; Pain 0/10; mas 09/08 05:01 BP 134 / 63; Pulse 65; Resp 16; Temp 97.2(TE); Pulse Ox 97% on R/A; Pain 0/10; slm 12:00 BP 136 / 68; Pulse 64; Resp 18; Temp 98(T); Pulse Ox 99% on R/A; mk4 21:31 BP 140 / 76; Pulse 76; Resp 18; Temp 98.1; Pulse Ox 96% on R/A; Pain 0/10; slm 09/07 17:13 Body Mass Index 26.54 (83.91 kg, 177.80 cm) jrd Vitals: 09/07 17:19 Log In Time N/A - ambulance arrival. mb9 ED Course: 17:13 Patient visited by Luke Ram PCA. jrd 17:13 Patient moved to Waiting jrd 17:13 Patient moved to I1 / M1 jrd 17:18 Triage Initiated mb9 17:19 Marlon Clements MD is Attending Physician. br1 17:27 Patient visited by Marlon Clements MD. br1 17:46 Patient visited by Leticia Ibanez RN. dsf 18:09 [facility] Payment Agreement was scanned into [employer] and attached to record. gjb 18:17 Patient name changed from Wayne\\S\\\\S\\Dye\\S\\ to Wayne\\S\\ \\S\\Dye. EDMS 18:32 The patient / caregiver is instructed regarding the plan of care and ED course. kc3 19:00 Patient visited by Rosa Vasquez LPN. ka4 19:[address] Patient [address] [facility] mas 19:15 Tayler Morales LPN is Primary Nurse. slm 19:15 Patient visited by Alvin Munguia. mas 19:16 Patient visited by Tayler Morales LPN. slm 19:31 Patient visited by Alvin Munguia. mas 19:45 Patient visited by Alvin Munguia. mas 20:00 Patient visited by Alvin Munguia. mas 20:00 Patient moved to OBSERVATION br1 20:15 Patient visited by Alvin Munguia. mas 20:19 No IV's were initiated during this patient's visit. No procedures done that require slm assistance. 20:22 Patient visited by Tayler Morales LPN. slm 20:30 Patient visited by Alvin Munguia. mas 20:45 Patient visited by Alvin Munguia. mas 21:00 Patient visited by Alvin Munguia. mas 21:15 Patient visited by Alvin Munguia. mas 21:31 Patient visited by Alvin Munguia. mas 21:48 Patient visited by Alvni Munguia. mas 22:00 Patient visited by Alvin Munguia. mas 22:15 Patient visited by Alvin Munguia. mas 22:31 Patient visited by Alvin Munguia. mas 22:43 Patient visited by Tayler Morales LPN. slm 22:45 Patient visited by Alvin Munguia. mas 23:01 Patient visited by Alvin Munguia. mas 23:03 Patient visited by Tayler Morales LPN. slm 23:07 Attending Physician role handed off by Marlon Clements MD cs11 23:07 Law Frank DO is Attending Physician. cs11 23:15 Patient visited by Alvin Munguia. mas 23:30 Patient visited by Alvin Munguia. mas 01 00:05 Patient visited by Alvin Munguia. mas 00:26 Patient visited by Alvin Munguia. mas 00:31 Patient visited by Alvin Munguia. mas 00:45 Patient visited by Alvin Munguia. mas 01:01 Patient visited by Alvin Munguia. mas 01:16 Patient visited by Alvin Munguia. mas 01:30 Patient visited by Alvin Munguia. mas 01:45 Patient visited by Alvin Munguia. mas 02:00 Patient visited by Alvin Munguia. mas 02:15 Patient visited by Alvin Munguia. mas 02:18 Patient visited by Tayler Morales LPN. slm 02:30 Patient visited by Alvin Munguia. mas 02:45 Patient visited by Alvin Munguia. mas 02:57 Patient visited by Leigh Cortez RN. sls1 03:00 Patient visited by Alvin Munguia. mas 03:15 Patient visited by Alvin Munguia. mas 04:04 Patient visited by Alvin Munguia. mas 04:15 Patient visited by Tayler Morales LPN. slm 04:26 Patient visited by Leesa Byrd RN. cf2 04:44 Patient visited by Alvin Munguia. mas 05:00 Patient visited by Alvin Munguia. mas 05:02 Patient visited by Tayler Morales LPN. slm 05:15 Patient visited by Alvin Munguia. mas 05:39 Patient visited by Alvin Munguia. mas 05:45 Patient visited by Alvin Munguia. mas 06:00 Patient visited by Alvin Munguia. mas 06:15 Patient visited by Alvin Munguia. mas 06:17 Patient visited by Tayler Morales LPN. slm 06:30 Patient visited by Alvin Munguia. mas 06:45 Patient visited by Alvin Munguia. mas 07:05 Patient visited by Alvin Munguia. mas 07:09 Primary Nurse role handed off by Tayler Morales LPN mcp 07:09 Tayler Morales LPN is Primary Nurse. slm 07:22 Patient visited by Jessee Browning Security Aide. pjf 07:36 Patient visited by Jessee Browning Security Aidariel. pjf 07:44 Patient visited by Jessee Browning Security Aide. pjf 08:06 Patient visited by Jessee Browning Security Aide. pjf 08:29 Patient visited by Jessee Browning Security Aide. pjf 08:41 Patient visited by Jessee Browning Security Aide. pjf 09:00 Psych Safety Check: Location: Psych Room. Visual Assessment: Cooperative. pjf 09:00 Psych Safety Check: Location: Psych Room. Visual Assessment: Cooperative. pjf 09:39 Patient visited by Jessee Browning Security Aide. pjf 10:01 Patient visited by Jessee Browning Security Aide. pjf 10:35 Patient visited by Jessee Browning Security Aide. pjf 10:54 Patient visited by Jessee Browning Security Aide. pjf 11:05 Patient visited by Jessee Browning Security Aide. pjf 11:19 Patient visited by Jessee Browning Security Aide. pjf 11:41 Patient visited by Jessee Browning Security Aide. pjf 11:48 Patient visited by Jessee Browning Security Aide. pjf 12:07 Patient visited by Jessee Browning, Security Aide. pjf 12:18 Patient visited by Jessee Browning, Security Aide. pjf 12:34 Patient visited by Kiet Rosales. rn1 12:45 Patient visited by Kiet Rosales. rn1 12:59 Patient visited by Kiet Rosales. rn1 13:36 Patient visited by Jessee Browning, Security Aide. pjf 13:50 Patient visited by Jessee Browning Security Aide. pjf 14:00 Psych Safety Check: Location: Psych Room. Visual Assessment: Cooperative. pjf 14:19 Patient visited by Jessee Browning, Security Aide. pjf 14:37 Patient visited by Jessee Browning, Security Aide. pjf 14:45 Psych Safety Check: Location: Psych Room. Visual Assessment: Cooperative. pjf 15:00 Psych Safety Check: Location: Psych Room. Visual Assessment: Cooperative. pjf 15:40 Patient visited by Yolanda Garcia RN. mk4 15:56 Patient visited by Jessee Browning Security Aide. pjf 16:27 Patient visited by Jessee Browning, Security Aide. pjf 17:16 Patient visited by Jessee Browning, Security Aide. pjf 17:28 Patient visited by Jessee Browning, Security Aide. pjf 17:42 Patient visited by Jessee Browning, Security Aide. pjf 18:01 Marty Bravo is Hospitalizing Provider. pjf 18:14 Patient visited by Yolanda Garcia RN. mk4 18:21 Patient visited by Jessee Browning Security Aide. pjf 18:22 Patient visited by Jessee Browning, Security Aide. pjf 18:26 Patient visited by Jessee Browning, Security Aide. pjf 18:44 Patient visited by Jessee Browning, Security Aide. pjf 18:55 Patient visited by Jessee Browning, Security Aide. pjf 19:00 Psych Safety Check: Location: Psych Room. Visual Assessment: Cooperative. kb5 19:13 Patient visited by Db Vasquez PCA. kb5 19:15 Psych Safety Check: Location: Psych Room. Visual Assessment: Cooperative. kb5 19:30 Psych Safety Check: Location: Psych Room. Visual Assessment: Cooperative. kb5 19:32 E Legal paperwork was scanned into [employer] and attached to record. ml4 19:45 Psych Safety Check: Location: Psych Room. Visual Assessment: Cooperative, Restless. kb5 20:00 Psych Safety Check: Location: Psych Room. Visual Assessment: Cooperative. kb5 20:04 Patient visited by Db Vasquez PCA. kb5 20:15 Patient visited by Db Vasquez PCA. kb5 20:15 Psych Safety Check: Location: Psych Room. Visual Assessment: Cooperative. kb5 20:30 Psych Safety Check: Location: Psych Room. Visual Assessment: Cooperative. kb5 20:31 Patient visited by Db Vasquez BOOKBINDER CHIEF. kb5 20:45 Patient visited by Db Vasquez PCA. kb5 20:45 Psych Safety Check: Location: Psych Room. Visual Assessment: Cooperative. kb5 21:00 Psych Safety Check: Location: Psych Room. Visual Assessment: Cooperative. kb5 21:07 Patient visited by Tayler Morales LPN. slm 21:15 Psych Safety Check: Location: Psych Room. Visual Assessment: Cooperative. kb5 21:18 Patient visited by Db Vasquez PCA. kb5 21:32 Patient visited by Db Vasquez PCA. kb5 21:45 Patient visited by Db Vasquez PCA. kb5 09/09 08:27 T-Sheet-- Draft Copy was scanned into [employer] and attached to record. gb Administered Medications: 09/08 20:14 Drug: Nicotine 1 applic [nicotine 21 mg/24 hr daily transdermal patch (1 patches)] [facility] Route: Transdermal; Site: left upper arm; Attachments: 09/08 19:32 E Legal paperwork ml4 Order Results: There are currently no results for this order. Outcome: 09/07 20:20 No special radiology studies were completed. Property removed, inventory done, secured sl in belongings bag- placed in locked locker. 09/08 04:54 Discharge Assessment: patient administered narcotics - no. slm 18:02 Decision to Hospitalize by Provider. pjf 21:48 The following High Risk Discharge criteria are identified: None. Admitted to Psych slm accompanied by tech, via wheelchair, with chart. Condition: good. 21:50 Patient left the ED. kb5 Signatures: Dispatcher [employer] EDAlma Barker, RN RN mcp Tyson, Paddy, PSA PSA cs Bobrashidgabriel, Teresa, Reg Reg gb Jessee Browning, Security Aide Securpjf Felicita, Evelin, PSA PSA ml4 Claxton, Db, BOOKBINDER CHIEF BOOKBINDER CHIEF kb5 Marlon Clements MD MD br1 Alvin Munguia Desiree,RN RN dsLeigh Melton, RN RN sls1 Law Frank, DO DO cs11 Tayler Morales,REFINING EQUIPMENT OPERATOR REFINING EQUIPMENT OPERATOR slm Yolanda Garcia, RN RN mk4 Rosa Vasquez,REFINING EQUIPMENT OPERATOR REFINING EQUIPMENT OPERATOR ka4 Luke Ram, BOOKBINDER CHIEF BOOKBINDER CHIEF jrd Wm Little,RN RN mb9 Kiet Rosales rn1 Kaylie Teresa,RN RN ame3 Lenora Morfin Leesa Byrd,RN RN cf2 Corrections: (The following items were deleted from the chart) 09/07 17:26 17:13 Presenting complaint: Patient states: "I'm here because someone called an 9 ambulance". When questioned further pt states, "I took a bunch of pills because I was in a bad way. I'm going through a divorce and I have a baby on the way.". pt reports this as a suicide attempt and states, "I just didn't want ot wake up. I know it was a stupid thing to do now". pt was transferred to [facility] from [facility]. [facility] 09/08 19:11 18:32 General: Appears in no apparent distress, comfortable, Behavior is cooperative, mk4 in visiting. dinner tray given. mk4 Chart Complete MTDD
[2016-09-10] MEDS: traZODone 50 MG TAB PO PRN (23:58)
--- NOTE | 2016-09-11 02:01 | IPN ---
DATE OF SERVICE: 09/10/2016 TREATMENT: The patient was admitted due to reported suicidal ideation and depressed mood resulting from conflicts with his . Admitting diagnosis is adjustment disorder with depressed mood. He is currently not on any psychiatric medication; however, he receives group, individual, and activity therapies. He reports that he has been attending and gaining immensely from the therapeutic programming. He is reported to have been cooperative and so far has not been involved in any incidents. He reports feeling better and no longer having severe thoughts, plan or intent of suicide. However, he says that his mood still is slightly depressed. VITAL SIGNS: Blood pressure 109/61, pulse 71, respirations 18, temperature 96. OBSERVATION: He is calm, cooperative, noted to be interacting normally. No evidence of psychosis. His mood is observed to be significantly less depressed. He denies suicidal, homicidal ideation. ASSESSMENT: He is responding to treatment and currently posing no imminent risk of danger to self or to others. He will be reevaluated and if he remains stable in the next 24-48 hours with no further suicidal ideation, he will scheduled for discharge. RODRÍGUEZ
[2016-09-11 06:45] VITALS: BP 145/67
[2016-09-11] MEDS: NICOTINE 21MG/24HR 1 EA TRANSDERMAL TD SCH (08:34)
[2016-09-11 18:52] VITALS: BP 147/80
[2016-09-11] MEDS: traZODone 50 MG TAB PO PRN (20:25)
--- NOTE | 2016-09-11 23:59 | IPN ---
DATE OF SERVICE: 09/11/2016 TREATMENT: The patient remains on no psychotropic medication. He is diagnosed with adjustment related disorder and presently sees individual, group and activity therapies. He presents with no new problems. He states he is doing well and is ready for discharge. He states that he no longer has any thoughts, plan or intent hurting himself or others. OBSERVATION: His vital signs are stable. Blood pressure of 115/67, pulse 79, respirations 18 and temperature 96.5. His calm and cooperative, adequately groomed, appropriately dressed. No psychotic features are evident. His mood is less depressed. No evidence of anxiety. He denies suicidal or homicidal thoughts, plan or intent. ASSESSMENT: He currently has improved and showed marked decrease in risk of self harm. PLAN: The patient will be reassessed in 24 hours and if stable, he will be scheduled for discharge after a chain command is written. RODRÍGUEZ
[2016-09-12 06:17] VITALS: BP 138/69
[2016-09-12] MEDS ORDERED: NICO21PAT TD (08:24)
[2016-09-12] MEDS: NICOTINE 21MG/24HR 1 EA TRANSDERMAL TD SCH (08:56)
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
== END 2016-09-12 11:50 | disposition home or self-care (01) | DRG 882 ==
LOC: M ED 17:07 → M PSY 09-08 21:57
PROVIDERS: ADMIT Psychiatry & Neurology Psychiatry; ATTEND Psychiatry & Neurology Psychiatry
DX: F43.23 Adjustment disorder with mixed anxiety and depressed mood (principal); F17.210 Nicotine dependence, cigarettes, uncomplicated; Z79.899 Other long term (current) drug therapy; E87.6 Hypokalemia; Z63.5 Disruption of family by separation and divorce; Z91.5 Personal history of self-harm; Z91.82 Personal history of military deployment